=== PATIENT | male | born 1935 | race Caucasian/White ===

== ENCOUNTER 2016-04-21 11:38 | Day surgery (SDC) | payer MEDICARE, OTHER ==
[~2016-04-21] VITALS: Ht 179.1 cm; Wt 96.5 kg
[~2016-04-21 11:38] MED LIST: AMLO5TAB2 PO; ASPI-973 PO; CETI10CA PO; ECON15CR10 TOP; ESOM40SU PO; GLPZ5T PO; HYDR25TA4 PO; IRBE300T18 PO; KTC2C15 TP; LIP40 PO; MELA10CA2 PO; METF500T4 PO; METH250T PO; METH5TAB5 PO; METO50TA3 PO; PIME30CR TP; PREG50CA PO; RES15 PO; Sodium Chloride LOK Flush 10 mL Syringe IV PRN; TRAZ-115 PO; ZOLP12.547 PO; fentaNYL-PF 50 mCg/mL 2 mL Inj IVPUSH PRN
[2016-04-21] MEDS ORDERED: Propofol 10,000 mCg/mL 20 mL Inj ONE (11:39)
[2016-04-21 12:14] VITALS: BP 169/86; PULSE 71; RESP 20; O2SAT 96
[2016-04-21] MEDS ORDERED: IPRA3AMP IH (12:22)
[2016-04-21] MEDS ORDERED: COLE625T PO (12:22)
[2016-04-21] MEDS ORDERED: LEVA0.6319 IH (12:22)
[2016-04-21] MEDS ORDERED: CLON-399 PO (12:22)
[2016-04-21] MEDS ORDERED: SITA50TA PO (12:22)
[2016-04-21] MEDS ORDERED: LUBI24CA4 PO (12:22)
[2016-04-21] MEDS: 0.9% Sodium Chloride 1,000 ML IV SCH ×2 (12:38→14:30)
[2016-04-21] MEDS ORDERED: Lactated Ringer's 1,000 ML IV SCH (13:41)
--- NOTE | 2016-04-21 13:41 | PCM.HPANE ---
Patient Data Date of Service: Apr 21, 2016 Surgeon Admitting Provider: Attending Provider:Dennys Bermudez MD Primary Care Physician:Mynor Prather MD Other Provider: Reason for Visit Polyp Of Colon Ht/WT & BMI Height (Feet): 5 Height (Inches): 10.5 Weight (Kilograms): 96.5 Body Mass Index 30.00 Allergies Coded Allergies: No Known Drug Allergies (Verified Allergy, Unknown, 04/21/16) Past Anesthesia History Anesthesia History: Denies:: Abnormal Airway, Anesthesia Reactions, Difficult Intubation, Fam Anesthesia Reaction, Fam Malignant Hypertherm, Malignant Hyperthermia Diabetes History Hx Diabetes?: Yes Current Bedside Blood Glucose: 149 MRSA MRSA: No Medications Blood Thinner: Aspirin Last Dose Blood Thinner: Apr 19, 2016 Home Meds Incl Beta Jane: Yes Date Beta Jane Taken: Apr 19, 2016 Time Beta Jane Taken: 0800 Reported Medications Ipratropium/Albuterol Sulfate (Iprat-Albut 0.5-3(2.5) mg/3 mL Inhalant Soln)3 Ml Ampul.neb3 Ml IH Q6 Ref 0 04/21/16 Lubiprostone (Amitiza)24 Mcg Pbhzydq51 Mcg PO 04/21/16 Clonidine ER 0.1 Mg Tablet0.1 Mg PO Q12H Ref 0 04/21/16 Colesevelam HCl (Welchol)625 Mg Znnlej284 Mg PO 04/21/16 Levalbuterol HCl (Xopenex)0.63 Mg/3 Ml Vial.neb0.63 Mg IH 04/21/16 Sitagliptin Phos (Januvia)50 Mg Kuleqe55 Mg PO DAILY Ref 0 04/21/16 Cetirizine HCl (Zyrtec)10 Mg Avpqfwz80 Mg PO HS #30 CAPSULE Ref 0 02/13/15 Zolpidem ER 12.5 Mg Eidune71.5 Mg PO HS PRN For Insomnia Ref 0 02/13/15 Trazodone 50 Mg Ppkimo67 Mg PO HS Ref 0 02/13/15 Temazepam 15 Mg Kldnzfj55 Mg PO HS PRN For Insomnia 30 Days Ref 0 02/13/15 Esomeprazole Magnesium (Nexium Powder Pack)40 Mg Suspdr.pkt40 Mg PO BID Ref 0 02/13/15 Metoprolol Tartrate 50 Mg Ioyukk42 Mg PO BID 30 Days Ref 0 02/13/15 Methyldopa 250 Mg Iekehf755 Mg PO TID 30 Days Ref 0 02/13/15 Methimazole 5 Mg Tablet5 Mg PO DAILY 30 Days 02/13/15 Metformin 500 Mg Bgpdbb341 Mg PO BID Ref 0 02/13/15 Melatonin 10 Mg Mxroefi01 Mg PO 02/13/15 Pregabalin (Lyrica)50 Mg Fbiqfuc11 Mg PO TID 30 Days Ref 0 02/13/15 Atorvastatin (Lipitor)40 Mg Fdfzko36 Mg PO DAILY Ref 0 02/13/15 Ketoconazole 15 Gm Cream..g.15 Gm TP 02/13/15 Irbesartan 300 Mg Zgldas537 Mg PO 02/13/15 Hydrochlorothiazide 25 Mg Iulcqy52 Mg PO DAILY 30 Days Ref 0 02/13/15 Glipizide 5 Mg Tablet5 Mg PO DAILY 30 Days 02/13/15 Pimecrolimus (Elidel)30 Gm Cream..g.30 Gm TP 02/13/15 Econazole Nitrate 15 Gm Cream..g.1 Appl TOP BID #1 TUBE 02/13/15 Aspirin 81 Mg Ksbdad08 Mg PO DAILY Ref 0 02/13/15 Amlodipine 5 Mg Tablet5 Mg PO DAILY Ref 0 02/13/15 Discontinued Reported Medications Cetirizine HCl (Zyrtec)10 Mg Lyzpuef21 Mg PO HS #30 CAPSULE Ref 0 02/13/15 History HEENT History: Positive for:: Hearing Problem Denies:: Abnormal Airway Difficult Intubation Dysphagia Denture Type: Full- Upper Full- Lower Teeth Condition: Missing Teeth Hx of Heart Problems?: Yes Cardiovascular History: Positive for:: Atrial Fibrillation (PATIENT DENIES) Hypertension Denies:: AICD Chest Pain Pacemaker Valvular Heart Disease Hx of Respiratory Problem?: Yes Respiratory History: Positive for:: 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) Pneumonia (MANY YEARS AGO) Denies:: Cough Hemoptysis (NOT CURRENTLY, "I MAY HAVE BEFORE AT SOME POINT") Tuberculosis Hx Neurologic Problems?: No Neurological History: Denies:: CVA Seizures Hx of GI Problems?: Yes Gastrointestinal History: Positive for:: Gastroesphageal Reflux Liver Disease ("ENLARGED LIVER") Denies:: Diverticulitis Gall Bladder Disease Rectal Bleeding Other History/Comment Hx GI bleed with anemia requiring Tx Hx of Problems?: Yes Other History/Comment L REnal mass / Pt Musculoskeletal History: Denies:: Fibromyalgia Joint Replacement Psycho Social History: Positive for:: Anxiety Hx Depression Hx Surgeries?: Yes (APPY, 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) Hx Any Other Health Problems?: Yes Hx Diabetes: YesBedside Blood Glucose: 149 Hx Alcohol Use: No Smoking Status: Former Smoker Have You Smoked inLast 12 mo: No (50 PYHx) Stop/Bang Treated for Sleep Apnea?: Yes Do You Have a CPAP Machine?: No S-Snoring: Do You Snore Loudly: Yes T-Tired: feel tired, fatigued: Yes O-Obsered: Observed not breath: No P-Blood Pressure: treated: Yes B- Body Mass Index > 35 kg/m2: No A- Age over 50: Yes N- Neck Large Circumference: Yes G- Gender Male: Yes LUCERO Total Score: 6 LUCERO Category 2: Yes Risk Assessment Category Category 1A: Patient has history of documented sleep apnea, and HAS NOT received any narcotic, sedative or anesthesia administration during this stay. Category 1B: Patient has history of documented sleep apnea, and HAS received any narcotic , sedative or anesthesia administration during this stay Category 2: Patient has SUSPECTED Obstructive Sleep Apnea, and HAS received any narcotic , sedative or anesthesia administration during this stay. Category 3: Patient has SUSPECTED Obstructive Sleep Apnea and HAS NOT received narcotic, sedative or anesthesia administration during this stay. Category 4: Outpatient in Procedural Areas with known sleep apnea or who screen positive for High Risk via the STOP/BANG questionnaire. Exam Exam Vital Signs Vital Signs Date Time Temp Pulse Resp B/P Pulse Ox O2 Delivery O2 Flow Rate FiO2 04/21/16 12:14 71 20 169/86 96 Nasal Cannula 3 General Appearance: Alert, Oriented X3, Cooperative, Mild Distress HEENT/AIRWAY: MP 3 Lungs: Other (ReducedBilateral BS x4; Increased AP dimension, ) Heart: Exam Unremarkable, Normal S1, Normal S2, Other (Distant S1S2) Meds/Labs/Diagnostics Admission Meds Current Medications Sodium Chloride (Normal Saline) 1,000 ml @ 10 mls/hr Q24H IV Last administered on 04/21/16t 12:38; Start 04/21/16 at 06:00 Bedside Blood Glucose: 149 Plan Impression Patient chart reviewed, patient interviewed and anesthestic plan with risks, benefits, and alternatives discussed, and informed consent obtained. NPO Status: >8 hours ? Pt ASA Physical Status: ASA3 Severe Disease Anesthetic Plan: MAC Bene/Risks/Altern/Consents: Yes HP Complete Prior to Induction: Yes Joe Montez DO Apr 21, 2016 13:41
[2016-04-21] MEDS ORDERED: MetoCLOpramide 5 mg/mL 2 mL Inj IVPUSH PRN (13:45)
[2016-04-21] MEDS ORDERED: Ondansetron 2 mg/mL 2 mL Inj IVPUSH PRN (13:45)
[2016-04-21] MEDS ORDERED: Albuterol-Ipratropium 3 mL Inhalation Solution NEB PRN (13:45)
[2016-04-21 14:39] VITALS: BP 154/72; PULSE 72; RESP 14; O2SAT 98
--- NOTE | 2016-04-21 14:43 | PCM.ANEP1 ---
Post Anesthesia Phase 1 PACU Phase 1 Assessment Date of Service: Apr 21, 2016 Vital Signs Vital Signs Date Time Temp Pulse Resp B/P Pulse Ox O2 Delivery O2 Flow Rate FiO2 04/21/16 14:39 36.7 72 14 154/72 98 Nasal Cannula 3 04/21/16 12:14 71 20 169/86 96 Nasal Cannula 3 Anesthetic Administered: MAC Level of Alertness: Awake, talking WARE's with Equal Strength: Yes Pain: No Nausea or Vomiting: No Oxygen Delivery: Simple Mask Lungs: Other (ReducedBilateral BS x4; Increased AP dimension, ) Dermatome Level: Full Sensation Summary Report to RN Patient interactive and responsive. Joe Montez DO Apr 21, 2016 14:43
--- NOTE | 2016-04-21 14:43 | PCM.ANEP2 ---
Post Anesthesia Evaluation ASA/CMS Post Anesthesia VS in Patient's Normal Range?: Yes Resp Stable; Airway Patent?: Yes CV Function & Hydration Stable: Yes Mental Status Recovered?: Yes Pain control Satisfactory?: Yes N/V Control Satisfactory?: Yes Additional Comments Pt weaned to NC as Rx from home O2 requirements Joe Montez DO Apr 21, 2016 14:43
[2016-04-21 14:48] VITALS: BP 165/89; PULSE 67; RESP 18; O2SAT 96
[2016-04-21 14:54] VITALS: BP 162/81; PULSE 74; RESP 18; O2SAT 96
--- NOTE | 2016-04-21 15:54 | ENDO ---
[address] [address] ENDOSCOPY PROCEDURE PATIENT: ELIDIA CHILEL : 1935 MR#: [id number] ADMIT: 04/21/2016 JOB ID: [id number] DATE: 04/21/2016 PRIMARY PROVIDER: Mynor Prather MD PROCEDURE: 1. Colonoscopy with hot snare polypectomy. 2. Argon plasma coagulation (APC) ablation for hemostasis. INDICATIONS: A 80-year-old male with numerous adenomatous colon polyps. There was one in the distal rectum that was incompletely removed by Dr. Solo a little over a year ago and an early repeat examination was recommended. EQUIPMENT: PCF H 180 AL. SEDATION: Monitored anesthesia as provided by Dr. Joe Montez. Anesthesia was requested as the patient is on oxygen at baseline. EQUIPMENT: PCF H 180 AL BOWEL PREPARATION: Fair, adequate examination. PROCEDURE INFORMATION: After the risks and benefits were explained, written and verbal informed consent was obtained. The patient was brought into the endoscopy suite and placed into the left lateral decubitus position. Sedation was achieved as above. A digital rectal examination was accomplished and no significant pathology was appreciated. The scope was introduced into the rectum and advanced under direct visualization to the level of the cecum, as identified by the appendiceal orifice and the ileocecal valve. The scope was slowly withdrawn to carefully examine the mucosa for any defects or lesions. Retroflexed views were accomplished in the rectum. Following intervention and APC ablation, the colon was decompressed. The scope removed the patient who tolerated the procedure well. FINDINGS: The patient had a sessile polyp in the proximal ascending colon perhaps about 8 mm in size removed with hot snare. In the descending colon, there was another perhaps 7 mm sessile polyp removed with hot snare. The residual polyp in the rectum was easy to identify and it did indeed approached the dentate line but most of this had been removed. I could see old scar. There was perhaps about 7-8 mm left in situ. This was removed with hot snare but came out but inadvertently we missed a portion of the more proximal aspect of the polyp and it had to be removed in piecemeal format. There was some mild persistent oozing of blood which be tended to with the tip of the snare and ultimately a circumferential APC probe using rectal settings. At the end of our interventions, the polyp appeared to have been removed and bleeding had ceased. No other pathology was appreciated throughout. ENDOSCOPIC DIAGNOSIS: 1. Persistent rectal polyp. 2. Colon polyps. RECOMMENDATIONS: 1. Await histopathology. 2. Surveillance colonoscopy would not be anticipated based on the patient's pulmonary status. This can be revisited in a few years. I would recommend GI clinical followup at that time. 3. I would recommend the patient perhaps hold off on aspirin for the next 3-4 days.
--- NOTE | 2016-04-23 11:26 | PATH ---
SURGICAL PATHOLOGY Attending Physician:Eloy Crocker CASE STATUS: Signed Out PATIENT NAME: ELIDIA CHILEL PID: [id number] : 1935 DATE COLLECTED:04/21/2016 00:00 SPECIMEN: 1: Rectum, Biopsy 2: Colon, Biopsy 3: Colon, Biopsy CLINICAL HISTORY: COLON POLYP 1). RECTAL POLYP 2). ASCENDING COLON POLYP 3). DESCENDING COLON POLYP FINAL DIAGNOSIS: 1.RECTAL POLYP: HYPERPLASTIC POLYP. 2.ASCENDING COLON POLYP: TUBULAR ADENOMA. 3.DESCENDING COLON POLYP: HYPERPLASTIC POLYP. ICD10 CODE D12.2 GROSS DESCRIPTION: The specimen is received in three formalin filled containers labeled with the patient's name. 1). The specimen is sublabeled "rectal polyp" and consists of 3 portions of tissue which aggregate to 0.6 0.6 x 0.4 CM. The specimen is entirely submitted in cassette 1A. 2). The specimen is sublabeled "ascending colon polyp" and consists of a 0.6 x 0.4 x 0.4 CM portion of tissue. The specimen is bisected and totally submitted in cassette 2A. 3). The specimen is sublabeled "descending colon polyp" and consists of a 0.4 x 0.4 x 0.3 CM portion of tissue which is entirely submitted in cassette 3A. 04/22/2016 DAC MICRO DESCRIPTION: See diagnosis. ICD-9 CODES: CPT CODES: 1: 26305 2: 33588 3: 15757 Electronically Signed Out Dennys Mello MD [facility] Pathology [facility] [address] [facility] [facility] [place] [address] Technical component performed at [facility], [facility] [address], [place], [address]
== END 2016-04-21 23:59 | disposition home or self-care (01) ==
LOC: END 11:38
PROVIDERS: ATTEND Internal Medicine Gastroenterology
DX: Z12.11 Encounter for screening for malignant neoplasm of colon (principal); Z86.010 Personal history of colon polyps; D12.2 Benign neoplasm of ascending colon; K63.5 Polyp of colon; K62.1 Rectal polyp
CPT/HCPCS: 45382; 45385; J7030